=== PATIENT | female | born 1990 | race Hispanic/Latino ===

== ENCOUNTER 2021-07-24 09:10 | Emergency (ER) | payer OTHER ==
[~2021-07-24] VITALS: Ht 165.1 cm; Wt 71.7 kg
[2021-07-24 09:18] VITALS: BP 127/57
== END 2021-07-24 11:05 | disposition home or self-care (01) ==
LOC: EDH 09:10
DX: S23.3XXA Sprain of ligaments of thoracic spine, initial encounter (principal); V49.3XXA Car occupant (driver) (passenger) injured in unspecified nontraffic accident, initial encounter; Y93.89 Activity, other specified; Y92.89 Other specified places as the place of occurrence of the external cause; Y99.8 Other external cause status
CPT/HCPCS: 72070